=== PATIENT | male | born 1995 | race African-American/Black ===

== ENCOUNTER 2017-05-11 03:36 | Emergency (ER) | payer MEDICAID ==
[~2017-05-11] VITALS: Ht 182.9 cm; Wt 86.0 kg
[2017-05-11] MEDS ORDERED: SODIUM CHLORIDE 0.9% 1,000 ML IV ONE (03:50)
[2017-05-11] MEDS ORDERED: ASPIRIN 81MG TABLET PO ONE (04:00)
[2017-05-11] MEDS ORDERED: ONDANSETRON HCL 4MG/2ML VIAL IV STA (04:01)
[2017-05-11 04:57] LABS: BASOPHILS % 0.7 % (0.0-2.0); EOSINOPHILS % 0.3 % (0.0-5.0); HEMATOCRIT. 44.5 % (42.0-52.0); HEMOGLOBIN. 15.4 g/dL (14.0-18.0); LYMPHOCYTES % 35.9 % (20.0-50.0); MEAN CORPUSCULAR VOLUME 86.6 fL (80.0-94.0); MONOCYTES % 11.5 % (2.0-8.0); NEUTROPHILS % 51.6 % (40.0-76.0); RED BLOOD CELL COUNT 5.14 mill/uL (4.7-6.1); RED CELL DISTRIBUTION WIDTH 12.8 % (11.6-14.6)
[2017-05-11 05:09] LABS: CHLORIDE 104 mEq/L (98-107); ETHANOL BLOOD 47 mg/dL
[2017-05-11 05:15] LABS: INR 1.1; PROTHROMBIN TIME 11.2 sec (9.4-11.6)
[2017-05-11] MEDS ORDERED: FAMOTIDINE 20MG/2ML VIAL IV NR (05:15)
[2017-05-11] MEDS ORDERED: KCL 20MEQ/100ML PREMIX 100 ML IV ONE (05:15)
[2017-05-11] MEDS ORDERED: POTASSIUM CHLORIDE INJ 20 MEQ in SODIUM CHLORIDE 0.9% 90 ML IV NR (05:15)
[2017-05-11 05:31] LABS: MEAN PLATELET VOLUME 8.2 fl (7.4-10.4); PLATELET 229 x1000/uL (130-400)
[2017-05-11 08:52] VITALS: BP 131/100
== END 2017-05-11 08:55 | disposition home or self-care (01) ==
LOC: ER 03:36
DX: F12.10 Cannabis abuse, uncomplicated (principal); F10.10 Alcohol abuse, uncomplicated; R07.89 Other chest pain; E87.1 Hypo-osmolality and hyponatremia; R73.9 Hyperglycemia, unspecified; R00.0 Tachycardia, unspecified; Y90.2 Blood alcohol level of 40-59 mg/100 ml; Z79.82 Long term (current) use of aspirin
CPT/HCPCS: 36415; 80053; 80307; 80329; 83690; 84484; 85025; 85610; 93005; 96361; 96365; 96366; 96375; 99285; G0482; J2405; J3480; J3490; J7030; Z7610; J7050

== ENCOUNTER 2018-01-06 00:46 | Emergency (ER) | payer MEDICAID ==
[~2018-01-06] VITALS: Ht 182.9 cm; Wt 82.0 kg
[2018-01-06 02:35] LABS: CHLORIDE 106 mEq/L (98-107)
[2018-01-06 02:37] LABS: BASOPHILS % 0.3 % (0.0-2.0); EOSINOPHILS % 0.3 % (0.0-5.0); HEMATOCRIT. 45.6 % (42.0-52.0); HEMOGLOBIN. 15.5 g/dL (14.0-18.0); LYMPHOCYTES % 18.3 % (20.0-50.0); MEAN CORPUSCULAR VOLUME 88.4 fL (80.0-94.0); MEAN PLATELET VOLUME 7.9 fl (7.4-10.4); MONOCYTES % 7.5 % (2.0-8.0); NEUTROPHILS % 73.6 % (40.0-76.0); PLATELET 279 x1000/uL (130-400); RED BLOOD CELL COUNT 5.16 mill/uL (4.7-6.1); RED CELL DISTRIBUTION WIDTH 13.4 % (11.6-14.6)
[2018-01-06] MEDS ORDERED: KETOROLAC 60MG/2ML VIAL IM NR (03:15)
[2018-01-06 03:35] VITALS: BP 134/81
== END 2018-01-06 03:38 | disposition home or self-care (01) ==
LOC: ER 00:46
DX: I31.9 Disease of pericardium, unspecified (principal); R05 Cough; R53.1 Weakness; Z98.890 Other specified postprocedural states
CPT/HCPCS: 36415; 71045; 80053; 84484; 85025; 93005; 96372; 99284; J1885